=== PATIENT | female | born 1970 | race Caucasian/White ===

== ENCOUNTER → 2017-11-15 | Outpatient (CLI) | payer OTHER, SELFPAY | PROVIDERS: PCP Family Medicine; Visit Provider Family Medicine | DX: D49.2 Neoplasm of unspecified behavior of bone, soft tissue, and skin (principal) | CPT/HCPCS: 78306; A9503 ==

== ENCOUNTER → 2018-02-09 16:12 | Outpatient (CLI) | payer OTHER, SELFPAY ==
--- NOTE | 2018-02-09 16:15 | MM_ITS ---
MM Dig screening mamm BI w/CAD CAD Screening ORDERING PHYSICIAN : Loretta Nolasco PATIENT AGE: 47 years GENDER: Female COMPARISON: Previous mammograms: 2012 2013 2012 mammograms INDICATION: Routine screening no hormones no new complaints Family history. Half sister with breast cancer postmenopausal TECHNIQUE: Standard CC and MLO images were obtained. R2 CAD reviewed. FINDINGS: Moderate breast density bilaterally with moderate fibroglandular elements throughout with most dense tissue towards upper outer quadrant regions. no significant new findings either breast. Inhomogeneous slight nodular character breast bilaterally is again seen, with stable appearance to areas at areas the deep right and left breast cc view since 2011. IMPRESSION: Stable bilateral mammogram BI-RADS Category: 2 Benign Finding(s) RECOMMENDED FOLLOW-UP: 1YR - 1 YEAR FOLLOW-UP (A letter has been sent to the patient regarding results of the study.)
== END ==
PROVIDERS: Family Provider Family Medicine; PCP Family Medicine; Visit Provider Obstetrics & Gynecology
DX: Z12.31 Encounter for screening mammogram for malignant neoplasm of breast (principal)
CPT/HCPCS: 77067

== ENCOUNTER → 2019-02-11 15:41 | Outpatient (CLI) | payer OTHER, SELFPAY ==
--- NOTE | 2019-02-11 15:56 | MM_ITS ---
MM Dig screening mamm BI w/CAD ORDERING PHYSICIAN : Maribel Spencer MD PATIENT AGE: 48 years GENDER: Female COMPARISON: Bilateral screening mammogram studies from January 2018, July 2014, September-this can be followed INDICATION: Routine: SCREENING. Patient does take OTC estrogen supplemental of some kind. No new complaints Family history:. Noncontributory TECHNIQUE: Standard CC and MLO images were obtained. R2 CAD reviewed. FINDINGS: Mild/Moderate asymmetry of breast pattern. Moderate density slightly heterogeneous breast pattern. Slightly limits mammography in these areas of denser tissue. Fibroglandular elements again noted to be are most apparent on the left . However the pattern appears stable when compared to multiple previous studies with no discrete or significant new findings appreciable.. No suspicious calcifications. RIGHT BREAST:No new areas of significant concern Overall the parenchymal pattern appears stable with no new areas of significant concern Likely small collection of small intramammary nodes at the deep right breast labeled a is again observed. Long-standing feature unchanged 2012. LEFT BREAST: No new areas of significant concern Again note the asymmetry with more apparent fibroglandular elements towards upper-outer quadrant left breast. Subtle focus of nodularity at central left breast towards 6:00 appears to be long-standing feature, dating back to at least 2012 and 2011. . Also some minimal nodularity at the immediate retroareolar region appears long-standing stable.. . These areas thus can be followed IMPRESSION: . No new areas of significant concern. Stable asymmetry again seen -with left breast fibroglandular elements & subtle nodularity appearing stable at left breast Bilateral follow-up in one year recommended; and would be encouraged BI-RADS Category: 2 Benign Finding(s) RECOMMENDED FOLLOW-UP: 1YR 1 YEAR FOLLOW-UP (A letter has been sent to the patient regarding results of the study.) .
== END ==
PROVIDERS: PCP Internal Medicine; Referring Provider Internal Medicine; Visit Provider Internal Medicine
DX: Z12.31 Encounter for screening mammogram for malignant neoplasm of breast (principal)
CPT/HCPCS: 77067

== ENCOUNTER → 2022-05-31 14:39 | Outpatient (CLI) | payer OTHER, SELFPAY ==
--- NOTE | 2022-05-31 14:44 | MM_ITS ---
PROCEDURE INFORMATION: Exam: MG Bilateral Screening 3D Mammography Exam date and time: 05/31/2022 2:39 PM Age: 51 years old Clinical indication: Screening examination TECHNIQUE: Imaging protocol: Bilateral Screening tomosynthesis and 2D mammography including computer-aided detection (CAD) when performed. COMPARISON: 1. MG [facility] MM Dig screening mamm BI w/CAD 02/11/2019 4:07 PM 2. MG [facility] MM Dig screening mamm BI w/CAD 02/09/2018 4:22 PM FINDINGS: MAMMOGRAPHY: Breast composition: The breasts are heterogeneously dense, which may obscure small masses. Mass: New 0.9 cm stellate mass in the posterior third of the right 9 o'clock axis Architectural distortion: None. Calcifications: No suspicious calcifications. Asymmetric density: None. Skin thickening: None. Axillary adenopathy: None. IMPRESSION: Patient to be recalled for spot compression views of the right breast in the CC and MLO projections, a full 90 degree lateral view, and right breast ultrasound for further evaluation of a right breast mass. ASSESSMENT: BI-RADS Category 0: Incomplete- Need Additional Imaging Evaluation and/or Prior Mammograms for Comparison
== END ==
PROVIDERS: PCP Internal Medicine; Visit Provider Internal Medicine
DX: Z12.31 Encounter for screening mammogram for malignant neoplasm of breast (principal)
CPT/HCPCS: 77063; 77067

== ENCOUNTER → 2022-06-22 13:47 | Outpatient (CLI) | payer OTHER, SELFPAY ==
--- NOTE | 2022-06-22 13:56 | MM_ITS ---
PROCEDURE INFORMATION: Exam: US Right Breast, Complete MG Right Diagnostic Breast Tomosynthesis Exam date and time: 06/22/2022 2:43 PM Age: 51 years old Clinical indication: Recall on the basis of screening mammogram 05/31/2022 for further evaluation 0.9 cm stellate mass in the posterior 3rd of the right breast 9 o'clock axis TECHNIQUE: Imaging protocol: Complete ultrasound of all four quadrants of the Right breast and the retroareolar regions, including ultrasound of the axilla when performed. Right Diagnostic tomosynthesis and 2D mammography including computer-aided detection (CAD) when performed. Unilateral or bilateral exam. COMPARISON: MG MM DIG MAMM DX UNILAT RT CAD 06/22/2022 1:51 PM FINDINGS: MAMMOGRAPHY: Spot compression demonstrates persistent 0.9 cm stellate mass in the right breast 9 o'clock axis, posterior 3rd. ULTRASOUND: Right sonography, all 4 quadrants, retroareolar and axilla. At 8 o'clock 8 cm from the nipple, irregular solid mass measuring 1.0 x 1.1 by 1.2 cm with minimal related internal Doppler flow, which corresponds to the mammographic finding. Several scattered sub cm benign-appearing cysts noted at 1 o'clock 3 cm from the nipple, 9 o'clock 6 cm from the nipple, and 10 o'clock 6 cm from the nipple. Abnormal appearing right axillary lymph node with compressed central fatty hilum, mildly thickened cortex at least 0.4 cm and moderate increased Doppler flow. IMPRESSION: 1.2 cm irregular solid mass at 8 o'clock, highly suspicious for cancer, ultrasound-guided biopsy is recommended correlation to ensure the ultrasound placed clip corresponds to the mammographic mass. Abnormal appearing ipsilateral axillary lymph node, consider fine needle aspiration as clinically indicated ASSESSMENT: BI-RADS Category 5: Highly suggestive of malignancy
== END ==
PROVIDERS: PCP Internal Medicine; Visit Provider Internal Medicine
DX: R92.8 Other abnormal and inconclusive findings on diagnostic imaging of breast (principal)
CPT/HCPCS: 76641; 77061; 77065; G0279